=== PATIENT | male | born 1995 | race Caucasian/White ===

== ENCOUNTER 2016-06-26 14:50 | Emergency (ER) | payer MEDICAID ==
[2016-06-26 15:24] LABS: Urine Drugs of Abuse Note Disclamer
[2016-06-26 15:38] LABS: Basophils % (Auto) 1.1 % (0.0-1.8); Eosinophils % (Auto) 2.6 % (0.0-4.3); Hematocrit 40.2 % (35.5-45.6); Hemoglobin 13.3 gm/dl (11.8-15.2); Mean Corpuscular HGB Conc 33 % (32-34); Mean Corpuscular Hemoglobin 28 pg (28-32); Mean Corpuscular Volume 86 fl (84-94); Platelet Count 240 K/mm3 (140-440); Red Blood Count 4.68 M/mm3 (3.65-5.03); Red Cell Distribution Width 14.5 % (13.2-15.2); White Blood Count 4.6 K/mm3 (4.5-11.0)
[2016-06-26 15:40] LABS: Bilirubin,Urine NEG (Negative); Blood,Urine NEG (Negative); Ketones,Urine NEG (Negative); Leukocyte Esterase,Urine NEG (Negative); Mucus,Urine 1+ /HPF; Nitrite,Urine NEG (Negative); Protein,Urine <15 mg/dL mg/dL (Negative)
[2016-06-26 15:56] LABS: Anion Gap 20 mmol/L; Blood Urea Nitrogen 16 mg/dL (9-20); Calcium 9.1 mg/dL (8.4-10.2); Carbon Dioxide 23 mmol/L (22-30); Chloride 97.5 mmol/L (98-107); Glucose 76 mg/dL (75-100); Potassium 4.5 mmol/L (3.6-5.0); Sodium 136 mmol/L (137-145)
--- NOTE | 2016-06-26 15:59 | Emergency Department Report ---
HPI - General Chief Complaint: Psych Time Seen by Provider: 06/26/16 15:12 - HPI HPI: The patient is a 21-year-old male who presents for mental health evaluation. The patient reports seeing red demons, that talk to him and instructed him to harm himself, for 1 week, worsened earlier today, constant since this am. He reports thinking of a plan to kill himself with a knife. The patient denies fever, headache, unexplained weight loss or weight gain, heat or cold intolerance, skin, hair, or nail changes, neuro deficits, homicidal ideations. ED Past Medical Hx - Past Medical History Previous Medical History?: No - Surgical History Past Surgical History?: No - Social History Smoking Status: Never Smoker Substance Use Type: None ED Review of Systems ROS: Stated complaint: SUICIDAL Other details as noted in HPI Constitutional: denies: fever ENT: denies: throat or neck pain Respiratory: denies: cough, shortness of breath Cardiovascular: denies: chest pain Endocrine: denies unexplained weight loss or gain Gastrointestinal: denies: abdominal pain, nausea Genitourinary: denies: dysuria Musculoskeletal: denies: leg swelling Skin: denies: rash Neurological: denies: headache Hematological/Lymphatic: denies: easy bleeding or easy bruising Psych: reports hallucinations, SI, HI Physical Exam - Physical Exam Vital Signs: Vital Signs 06/26/16 15:15 Temperature 98.1 F Pulse Rate 77 Respiratory 18 Rate Blood Pressure 139/94 O2 Sat by Pulse 100 Oximetry Physical Exam: General: well-nourished, well-developed, no acute distress Head: Normocephalic, atraumatic Eyes: normal sclera ENT: Mucous membranes are pink and moist Neck: trachea midline, neck supple, No neck stiffness, no cervical adenopathy Respiratory: Breath sounds equal bilaterally, no wheezing, rales, or rhonchi Cardio: S1 and S2 present, no murmurs, rubs, gallops, capillary refill is brisk Abdomen: Normoactive bowel sounds, soft abdomen, no tenderness Musc: No pitting edema Skin: No rash Neuro: no facial drooping, normal speech Psych: Flat affect, patient withdrawn, patient delusional, positive hallucinations ED Course Vital Signs 06/26/16 15:15 Temperature 98.1 F Pulse Rate 77 Respiratory 18 Rate Blood Pressure 139/94 O2 Sat by Pulse 100 Oximetry ED Medical Decision Making - Lab Data Result diagrams: 06/26/16 15:24 06/26/16 15:24 - Medical Decision Making The patient was seen and examined by myself. The patient is placed on a car servicer and continuous pulse ox. On initial evaluation, the patient was found to be in no distress. Labs are obtained. Lab results are grossly unremarkable. The patient is medically clear. Mental health is consulted. Mental health evaluates the patient and agrees that the patient is at risk of harm to self. A 1013 is completed. The patient will be admitted to a psychiatric facility once bed placement is obtained. Critical care attestation.: If time is entered above; I have spent that time in minutes in the direct care of this critically ill patient, excluding procedure time. ED Disposition Clinical Impression: Suicidal ideations Disposition: DC/TX PSY HOSP/PSY UNIT Is pt being admited?: No Does the pt Need Aspirin: No Condition: Stable Referrals: PRIMARY CARE, [Primary Care Provider] - 3-5 Days Time of Disposition: 15:59
[2016-06-26] MEDS ORDERED: TYLENOL PO PRN (20:20)
[2016-06-26] MEDS ORDERED: ALUM-MAG HYDROX-SIMETH 200-200-20MG/5ML PO PRN (20:20)
[2016-06-26] MEDS ORDERED: MILK OF MAGNESIA PO PRN (20:20)
[2016-06-27 07:54] VITALS: BP 130/77
== END 2016-06-27 08:34 ==
LOC: EEVIPCON 14:50 → ED 14:50
DX: R45.851 Suicidal ideations (principal)
CPT/HCPCS: 36415; 80048; 80307; 81001; 85025; 99285; G0480; 80320